=== PATIENT | female | born 1940 | race Caucasian/White ===

== ENCOUNTER 2016-09-27 09:56 | Day surgery (SDC) | payer MEDICARE ==
[~2016-09-27] VITALS: Ht 157.5 cm; Wt 73.9 kg
[~2016-09-27 09:56] MED LIST: CALCIUM + D PO; ESTRACE1 MG PO; FLONASE SE27.5 MCG/S NAB; IRON325 M1 PO; LEVOTHYROXIN25 MC1 PO; MEDROXYPROGEST2.5 MG PO; MONTELUKAST SOD10 MG PO; PROAIR HFA IN; VITAMIN B-121000 MCG PO; ZESTRIL10 M1 PO
[2016-09-27 13:49] VITALS: BP 125/65
== END 2016-09-27 13:25 | disposition home or self-care (01) ==
LOC: ENDO 09:56 → ORM 12:00 → ENDO 12:00 → ORM 12:15 → ENDO 12:45
PROVIDERS: ATTEND Internal Medicine Gastroenterology
PROC: 0DBE8ZX Excision of Large Intestine, Via Natural or Artificial Opening Endoscopic, Diagnostic (ICD-10-PCS; principal; 2016-09-27)
PROC: 0DBN8ZX Excision of Sigmoid Colon, Via Natural or Artificial Opening Endoscopic, Diagnostic (ICD-10-PCS; 2016-09-27)
DX: R19.7 Diarrhea, unspecified (principal); D50.0 Iron deficiency anemia secondary to blood loss (chronic); K64.4 Residual hemorrhoidal skin tags; K63.5 Polyp of colon; K64.8 Other hemorrhoids; Q43.8 Other specified congenital malformations of intestine; K38.3 Fistula of appendix; K92.2 Gastrointestinal hemorrhage, unspecified; I10 Essential (primary) hypertension; K21.9 Gastro-esophageal reflux disease without esophagitis; K80.20 Calculus of gallbladder without cholecystitis without obstruction